=== PATIENT | female | born 1960 | race Caucasian/White ===

== ENCOUNTER → 2018-10-18 | Outpatient (CLI) | payer MEDICARE ==
--- NOTE | 2018-10-26 00:32 | ECWPNPC ---
PATIENT NAME: PIEDAD ARMENTA : 1960 GENDER: FEMALE VISIT DATE: 10/18/2018 DISCHARGE DATE: 10/18/18 1504 VISIT LOCKED DATE TIME: PHYSICIAN: KIM KINNEY RESOURCE: KIM KINNEY REASON FOR APPOINTMENT 1. CHRONIC LEFT HIP/ LEG PAIN HISTORY OF PRESENT ILLNESS NEW PATIENT CONSULT: 58 Y/O FEMALE REFERRED BY [facility], TO EVALUATE PERSISTENT LEFT GROIN AND LEFT ANTERIOR THIGH PAIN.SUSTAINED A FEMORAL NECK FX AFTER FALLING AT HOME MAY 2016 AND UNDERWENT LEFT TOTAL HIP REPLACEMENT ON 05/06/16.HAS HAD PERSISTENT LEFT GROIN,HIP AND THIGH PAIN SINCE.PAIN HAS GOTTEN WORSE OVER THE PAST YEAR AND SHE WAS REEVALUATED BY SURGEON,DR. LANGE 06/2018.IMAGING AND NCS WAS DONE AT THIS TIME AND NO PATHOLOGY FOUND.REMOTE HX OF LEFT LIGAMENT RING /GROIN SURGERY 2006 FOR HERNIA.DESCRIBES PAIN 8-10/10 VAS.PAIN IS AGGREVATED BY MOVING LEGS OR PROLONGED SITTING AND RELIEVED SOMEWHAT WITH REPOSITIONING.SHE USES A WHEELCHAIR OFTEN.HAS TRIALED NSAIDS AND WAS UNABLE TO TOLERATE NAPROXEN DUE TO GI ISSUES.RECENTLY STARTED ON MELOXICAM 7.5MG BID WITH OMEPRAZOLE 20MG DAILY.DESCRIBES PAIN SHARP AND STABBING. WHEN DID YOUR PAIN FIRST START? . BRIEFLY DESCRIBE HOW YOUR PAIN STARTED? . HOW DOES YOUR PAIN CHANGE WITH TIME? . DOES YOUR PAIN AWAKEN YOU FROM SLEEP? . HOW MANY HOURS OF SLEEP DO YOU NORMALLY GET? . ANY DIAGNOSTIC TESTING? . FACILITY WHERE TESTS WERE DONE? ____. PAIN TREATMENT TREATMENT YES CANCER HAVE YOU EVER HAD ANY TYPE OF CANCER?NO NO. PAIN SCREENING: PATIENT HAS A COMPLAINT OF ACUTE OR CHRONIC PAIN :YES FALL RISK SCREENING: SCREENING : NO FALLS IN THE PAST YEAR. CARTAGENA INVENTORY: QUESTIONNAIRE ASSESSEDTBD SCORE VALUE CALCULATED TBD CURRENT MEDICATIONS TAKING SYNTHROID 88 MCG TABLET 1 TABLET ON AN EMPTY STOMACH IN THE MORNING ORALLY ONCE A DAY TAKING TRIAMTERENE-HCTZ 37.5-25 MG TABLET 1 TABLET IN THE MORNING ORALLY ONCE A DAY TAKING DIAZEPAM 5 MG TABLET 1/2 TAB ORALLY DAILY TAKING MECLIZINE HCL 25 MG TABLET 1 TABLET NEEDED ORALLY ONCE A DAY TAKING TYLENOL 325 MG TABLET 1 TABLET NEEDED ORALLY EVERY 4 HRS, NOTES: PT TAKING 500 MG TAKING LIDODERM 5 % PATCH 1 PATCH TO SKIN REMOVE AFTER 12 HOURS EXTERNALLY ONCE A DAY TAKING OMEPRAZOLE 20 MG CAPSULE DELAYED RELEASE 1 CAPSULE ORALLY ONCE A DAY TAKING MELOXICAM 7.5 MG TABLET 1 TABLET ORALLY ONCE A DAY NOT-TAKING NAPROXEN 500 MG TABLET 1 TABLET WITH FOOD OR MILK NEEDED ORALLY EVERY 12 HRS NOT-TAKING METHOCARBAMOL 750 MG TABLET 1 TABLET ORALLY BID NOT-TAKING IBUPROFEN 200 MG TABLET 1 TABLET WITH FOOD OR MILK NEEDED ORALLY THREE TIMES A DAY MEDICATION LIST REVIEWED AND RECONCILED WITH THE PATIENT PAST MEDICAL HISTORY ENDOMETRIOSIS SPORTS HERNIA COLITIS DEVIATED SEPTUM VETIGO HEMORRHOIDS DEGENRATIVE DISC DISEASE HYPO THYROID ALLERGIES SEPTRA: RASH NAPROXEN: BURNING AND BLOZTING SURGICAL HISTORY APPENDECTEMY 1967 ENDOMETRIOSIS-LEFT OVARY AND FALLOPION TUBE 1989 SPORTS HERNIA 2006 TOTAL LEFT HIP 2017 FAMILY HISTORY FATHER: , DIAGNOSED WITH CANCER MOTHER: , HYPERTENSION SIBLINGS: ALIVE, HYPERTENSION DAUGHTER(S): ALIVE FATHER- OF CANCER NOT SURE WHERE. SOCIAL HISTORY GENERAL: TOBACCO USE ARE YOU A:NONSMOKER NEVER BEEN A SMOKER OTHERS AT HOME: JOYCE ALONE. HOUSING: [email or web address] TRAIL[employer]. EDUCATION LEVEL OF EDUCATION:HIGH SCHOOL DIET: REGULAR. LANGUAGE LANGUAGES SPOKEN:FILIPINO DOMESTIC VIOLENCE DO YOU FEEL SAFE IN YOUR ENVIRONMENT?YES EXERCISE: WALKS WHEN CAN. LEARNING BARRIERS / SPECIAL NEEDS SPECIAL DEVICES?YES CANE, WALKER WHEN SHE HAS EPISODE PAIN CLINIC PFS, CLERGY, PUBLIC HEALTH REFERRALS PFS REFERRAL NEEDED?NO CLERGY REFERRAL NEEDED?NO PUBLIC HEALTH REFERRAL NEEDED?NO WAS THE PROVIDER NOTIFIED OF ANY PERTINENT INFO?NO HAS THE PATIENT BEEN EDUCATED REGARDING HIS/HER PLAN OF CARE?YES HAS THE PATIENT BEEN EDUCATED REGARDING PAIN, THE RISK FOR PAIN, THE IMPORTANCE OF EFFECTIVE PAIN MANAGEMENT, AND THE PAIN ASSESSMENT PROCESS?YES CAFFEINE CAFFEINE USE?YES A SODA ONCE A MONTH " CHOCOLATE CANDY ONCE A WEEK" ADVANCE DIRECTIVE ADVANCE DIRECTIVE DISCUSSED WITH PATIENT:YES WE DISCUSSED AND DECLINES PAPERWORK ADVENTISM ADVENTISM MENNONITE MARITAL STATUS: . ALCOHOL SCREENING DID YOU HAVE A DRINK CONTAINING ALCOHOL IN THE PAST YEAR?NO POINTS0 INTERPRETATIONNEGATIVE OCCUPATION: DOES NOT WORK AND HASNT SINCE 2004 IS ON DISABILITY. HOSPITALIZATION/MAJOR DIAGNOSTIC PROCEDURE SURGERIES AND CHILD REVIEW OF SYSTEMS REVIEWED BY: PROVIDER: KIM KINNEY SUPERVISOR TYPE DISK QUALITY CONTROL . CONSTITUTIONAL: ANY CHANGE IN YOUR MEDICAL CONDITION? NO . CHILLS NO . FEVER NO . INFECTION: DO YOU HAVE NEW INFECTIONS? NO . DO YOU HAVE HISTORY OF MRSA? NO . MUSCULOSKELETAL: ANY NEW PATTERNS OF PAIN OR NUMBNESS? NO . SYTEMIC LUPUS NO . GASTROENTEROLOGY: ANY NEW CHANGE IN BOWEL CONTROL? NO . BARRETTS ESOPHAGUS NO . CIRRHOSIS NO . HEPATITIS NO . LIVER FAILURE NO . ACID REFLUX NO . UNEXPLAINED WEIGHT LOSS NO . GENITOURINARY: ANY NEW CHANGE IN BLADDER CONTROL? NO . IS THERE A CHANCE YOU COULD BE ? NO . HEMATOLOGY/LYMPH: DO YOU TAKE ANY BLOOD THINNERS? (FOR EXAMPLE- COUMADIN, PLAVIX, AGGRENOX, PLATEL, PRADAXA, OR XARELTO) NO . WHEN WAS YOUR LAST DOSE? DATE: TIME: . LOW PLATELET COUNT NO . SICKLE CELL DISEASE NO . VON WILLIEBRANDS NO . FACTOR V LEIDEN NO . THALLASEMIA NO . ANEMIA NO . EASY BRUISING NO . NEUROLOGY: HAVE YOU FALLEN IN THE PAST 12 MONTHS? NO . ANY NEW EXTREMITY NUMBNESS OR WEAKNESS? NO . HEAD INJURY NO . DEMENTIA NO . CEREBRAL PALSY NO . MULTIPLE SCLEROSIS NO . DIZZINESS NO . HEADACHE NO . STROKES NO . VERTIGO NO . CARDIOLOGY: DO YOU HAVE A PACEMAKER OR DEFIBRILLATOR? NO . ANGINA NO . HEART ATTACK NO . HEART SURGERY NO . CONGESTIVE HEART FAILURE/FLUID OVERLOAD NO . CHEST PAIN NO . HIGH BLOOD PRESSURE NO . IRREGULAR HEART BEAT NO . RESPIRATORY: HAVE YOU BEEN SICK IN THE PAST WEEK? NO . FEVER NO . FLU LIKE SYMPTOMS? NO . CPAP NO . BYPAP NO . ASTHMA NO . EMPHYSEMA NO . CHRONIC LUNG DISEASES NO . SHORTNESS OF BREATH ON EXERTION NO . DO YOU USE ANY TYPE OF TOBACCO (SMOKE, SMOKELESS, CHEW)? NO . COUGH NO . SNORING NO . INTEGUMENTARY: DO YOU HAVE ANY RASHES OR OPEN SORES? NO . ALLERGIC/IMMUNO: ARE YOU ALLERGIC TO IV DYE? NO . ANY NEW ALLERGIES? NO . PSYCHIATRIC: DO YOU HAVE THOUGHTS OF HURTING YOURSELF OR SOMEONE ELSE? NO . ARE YOU ABUSED, NEGLECTED, OR IN AN UNSAFE ENVIRONMENT? NO . ENDOCRINOLOGY: ARE YOU DIABETIC? NO . THYROID DISORDER NO . OTHER: DO YOU NEED ANY PRESCRIPTIONS? NO . IF YES, PLEASE LIST: ____ . ANY NEW PROBLEMS WITH YOUR MEDICATIONS? NO . WHEN DID YOU LAST EAT? ____ . WHEN DID YOU LAST DRINK? ____ . WHAT DID YOU LAST DRINK? ____ . NAME OF PERSON DRIVING YOU HOME? ____ . DO YOU HAVE ANY OTHER QUESTIONS OR CONCERNS NO . VITAL SIGNS WT 138.8 LBS, HT 54 IN, BMI 33.46 INDEX, BP 138/78 MM HG, HR 73 /MIN, RR 18 /MIN, TEMP 97.0 F, OXYGEN SAT % 96%, NA INITIALS AW 1332. EXAMINATION GENERAL EXAMINATION: GENERAL APPEARANCE: AWAKE,ALERT ,PLEAASANT . PSYCH AFFECT NORMAL . NECK: TRACHEA MIDLINE. NO CERVICAL OR SUPRACLAVICULAR LYMPHADENOPATHY NOTED. LUNGS: LUNG YANEZ ARE CLEAR TO AUSCULTATION BILATERALLY. GOOD MOVEMENT OF AIR . HEART: S1, S2 IN A REGULAR RATE AND RHYTHM. NO SIGNIFICANT MURMURS, RUBS OR GALLOPS NOTED . ABDOMEN: SOFT/NONTENDER. MUSCULOSKELETAL: MUSCLE STRENGTH TESTING 5/5 BILATERAL UPPER/LOWER EXTREMITIES. LUMBAR SACRAL SPINE PALPATION: NEGATIVE FOR PAIN OVER L/S SPINE. NEGATIVE FOR PAIN OVER L/S PARASPINALS. , TRIGGER POINTS:. CERVICAL NEGATIVE FOR PAIN WITH PALPATION OF CERVICAL SPINE. NEGATIVE FOR PAIN WITH PALPATION OF CERVICAL PARASPINALS. NEGATIVE FOR PAIN WITH PALPATION OF TRAPEZIUS BILAT. EXTREMITIES: TENDER WITH PALPATION OVER FEMORAL NERVE LEFT GROIN.NEGATIVE FOR LYMPHADENOPATHY.NO REDDNESS OR SWELLING. SKIN: NO RASH OR SKIN LESIONS. NEUROLOGIC EXAM: CN'S NORMAL TESTED , DTRS 1-2+ IN ALL 4 EXTREMITIES. ASSESSMENTS FEMORAL NEURITIS - G57.20 (PRIMARY) TREATMENT FEMORAL NEURITIS NOTES: LEFT FEMORAL NERVE BLOCK . PREVENTIVE MEDICINE PAIN CLINIC TEACHING: PROCEDURE TEACHING PT GIVEN VERBAL EDUCATION ON FEMORAL NERVE BLOCK. PT ALSO GIVEN WRITTEN AND VERBAL PRE PROCEDURE INSTRUCTIONS. PT VERBALIZES UNDERSTANDING OF ALL EDUCATION AND INSTRUCTIONS. CHRIS BETANCUR 10/18/2018 2:50:44 PM > . PROCEDURE CODES FA211 ESTABILISHED PATIENT [facility] FACILITY CHARGE DISPOSITION & COMMUNICATION FOLLOW UP REASON: LEFT FEMORAL NERVE BLOCK ELECTRONICALLY SIGNED BY CHRIS CASEY ON 10/25/2018 AT 10:05 AM EDT DISCLAIMER : THIS IS A VISIT SUMMARY EXTRACTED FROM THE [employer] CHART. IT IS NOT A COPY OF THE [employer] PROGRESS NOTE. DAVID
== END ==
LOC: M PAIN 13:00
PROVIDERS: ATTEND Nurse Practitioner Family
DX: G57.20 Lesion of femoral nerve, unspecified lower limb (principal); E03.9 Hypothyroidism, unspecified; Z96.642 Presence of left artificial hip joint; Z88.1 Allergy status to other antibiotic agents; Z88.6 Allergy status to analgesic agent; Z79.899 Other long term (current) drug therapy

== ENCOUNTER → 2018-12-07 | Outpatient (CLI) | payer MEDICARE ==
[~2018-12-07] MED LIST: BUPIVACAINE HCL 0.25% 30 ML VIAL As Ordered ONE; ISOVUE-M 200 41% 20ML VIAL (Q9966) As Ordered ONE; LIDOCAINE 1% SDV INJ 30 ML VIAL As Ordered ONE; TRIAMCINOLONE ACETONIDE SUSP 40 MG/ML VIAL (J3301) As Ordered ONE; diazePAM 5 MG TAB As Ordered ONE; oxyCODONE 5MG TAB As Ordered ONE
--- NOTE | 2018-12-20 01:25 | ECWPNPC ---
PATIENT NAME: PIEDAD ARMENTA : 1960 GENDER: FEMALE VISIT DATE: 12/07/2018 DISCHARGE DATE: 12/07/18 1338 VISIT LOCKED DATE TIME: PHYSICIAN: DELFINA MATOS MD RESOURCE: DELFINA MATOS MD REASON FOR APPOINTMENT 1. LEFT FEMORAL NERVE BLOCK HISTORY OF PRESENT ILLNESS HISTORY OF PRESENT ILLNESS: PAIN THE PATIENT DESCRIBES THE PAIN... FALL RISK SCREENING: SCREENING :NO FALLS REPORTED IN THE LAST YEAR CURRENT MEDICATIONS TAKING SYNTHROID 88 MCG TABLET 1 TABLET ON AN EMPTY STOMACH IN THE MORNING ORALLY ONCE A DAY, NOTES: 12/06/18 0800 TAKING TRIAMTERENE-HCTZ 37.5-25 MG TABLET 1 TABLET IN THE MORNING ORALLY ONCE A DAY, NOTES: 12/06/18 0800 TAKING DIAZEPAM 5 MG TABLET 1/2 TAB ORALLY DAILY, NOTES: 12/06/18 0800 TAKING MECLIZINE HCL 25 MG TABLET 1 TABLET NEEDED ORALLY ONCE A DAY, NOTES: 12/06/18 2100 NOT-TAKING TYLENOL 325 MG TABLET 1 TABLET NEEDED ORALLY EVERY 4 HRS, NOTES: PT TAKING 500 MG NOT-TAKING LIDODERM 5 % PATCH 1 PATCH TO SKIN REMOVE AFTER 12 HOURS EXTERNALLY ONCE A DAY, NOTES: LAST MONTH NOT-TAKING OMEPRAZOLE 20 MG CAPSULE DELAYED RELEASE 1 CAPSULE ORALLY ONCE A DAY NOT-TAKING MELOXICAM 7.5 MG TABLET 1 TABLET ORALLY ONCE A DAY NOT-TAKING NAPROXEN 500 MG TABLET 1 TABLET WITH FOOD OR MILK NEEDED ORALLY EVERY 12 HRS NOT-TAKING METHOCARBAMOL 750 MG TABLET 1 TABLET ORALLY BID NOT-TAKING IBUPROFEN 200 MG TABLET 1 TABLET WITH FOOD OR MILK NEEDED ORALLY THREE TIMES A DAY MEDICATION LIST REVIEWED AND RECONCILED WITH THE PATIENT PAST MEDICAL HISTORY ENDOMETRIOSIS SPORTS HERNIA COLITIS DEVIATED SEPTUM VETIGO HEMORRHOIDS DEGENRATIVE DISC DISEASE HYPO THYROID ALLERGIES SEPTRA: RASH NAPROXEN: BURNING AND BLOZTING SURGICAL HISTORY APPENDECTEMY 1968 ENDOMETRIOSIS-LEFT OVARY AND FALLOPION TUBE 1989 SPORTS HERNIA 2006 TOTAL LEFT HIP 2017 FAMILY HISTORY FATHER: , DIAGNOSED WITH CANCER MOTHER: , HYPERTENSION SIBLINGS: ALIVE, HYPERTENSION DAUGHTER(S): ALIVE FATHER- OF CANCER NOT SURE WHERE. SOCIAL HISTORY GENERAL: TOBACCO USE ARE YOU A:NONSMOKER NEVER BEEN A SMOKER OTHERS AT HOME: JOYCE ALONE. HOUSING: [employer]. EDUCATION LEVEL OF EDUCATION:HIGH SCHOOL DIET: REGULAR. LANGUAGE LANGUAGES SPOKEN:TURKISH DOMESTIC VIOLENCE DO YOU FEEL SAFE IN YOUR ENVIRONMENT?YES EXERCISE: WALKS WHEN CAN. LEARNING BARRIERS / SPECIAL NEEDS SPECIAL DEVICES?YES CANE, WALKER WHEN SHE HAS EPISODE PAIN CLINIC PFS, CLERGY, PUBLIC HEALTH REFERRALS PFS REFERRAL NEEDED?NO CLERGY REFERRAL NEEDED?NO PUBLIC HEALTH REFERRAL NEEDED?NO WAS THE PROVIDER NOTIFIED OF ANY PERTINENT INFO?NO HAS THE PATIENT BEEN EDUCATED REGARDING HIS/HER PLAN OF CARE?YES HAS THE PATIENT BEEN EDUCATED REGARDING PAIN, THE RISK FOR PAIN, THE IMPORTANCE OF EFFECTIVE PAIN MANAGEMENT, AND THE PAIN ASSESSMENT PROCESS?YES CAFFEINE CAFFEINE USE?YES A SODA ONCE A MONTH " CHOCOLATE CANDY ONCE A WEEK" ADVANCE DIRECTIVE ADVANCE DIRECTIVE DISCUSSED WITH PATIENT:YES WE DISCUSSED AND DECLINES PAPERWORK MORMONISM MORMONISM MENNONITE MARITAL STATUS: . ALCOHOL SCREENING DID YOU HAVE A DRINK CONTAINING ALCOHOL IN THE PAST YEAR?NO POINTS0 INTERPRETATIONNEGATIVE OCCUPATION: DOES NOT WORK AND HASNT SINCE 2004 IS ON DISABILITY. REVIEWED WITH PATIENT 12/07/18 1121 NLJ. HOSPITALIZATION/MAJOR DIAGNOSTIC PROCEDURE SURGERIES AND CHILD REVIEW OF SYSTEMS REVIEWED BY: PROVIDER: . CONSTITUTIONAL: ANY CHANGE IN YOUR MEDICAL CONDITION? NO . CHILLS NO . FEVER NO . INFECTION: DO YOU HAVE NEW INFECTIONS? NO . DO YOU HAVE HISTORY OF MRSA? NO . MUSCULOSKELETAL: ANY NEW PATTERNS OF PAIN OR NUMBNESS? YES- PAIN IN LEFT GROIN AREA . GASTROENTEROLOGY: ANY NEW CHANGE IN BOWEL CONTROL? NO . GENITOURINARY: ANY NEW CHANGE IN BLADDER CONTROL? NO . IS THERE A CHANCE YOU COULD BE ? NO . HEMATOLOGY/LYMPH: DO YOU TAKE ANY BLOOD THINNERS? (FOR EXAMPLE- COUMADIN, PLAVIX, AGGRENOX, PLATEL, PRADAXA, OR XARELTO) NO . WHEN WAS YOUR LAST DOSE? DATE: TIME: . NEUROLOGY: HAVE YOU FALLEN IN THE PAST 12 MONTHS? NO . ANY NEW EXTREMITY NUMBNESS OR WEAKNESS? NO . CARDIOLOGY: DO YOU HAVE A PACEMAKER OR DEFIBRILLATOR? NO . RESPIRATORY: HAVE YOU BEEN SICK IN THE PAST WEEK? NO . FEVER NO . FLU LIKE SYMPTOMS? NO . COUGH NO . INTEGUMENTARY: DO YOU HAVE ANY RASHES OR OPEN SORES? NO . ALLERGIC/IMMUNO: ARE YOU ALLERGIC TO IV DYE? NO . ANY NEW ALLERGIES? NO . PSYCHIATRIC: DO YOU HAVE THOUGHTS OF HURTING YOURSELF OR SOMEONE ELSE? NO . ARE YOU ABUSED, NEGLECTED, OR IN AN UNSAFE ENVIRONMENT? NO . ENDOCRINOLOGY: ARE YOU DIABETIC? NO . OTHER: DO YOU NEED ANY PRESCRIPTIONS? NO . IF YES, PLEASE LIST: ____ . ANY NEW PROBLEMS WITH YOUR MEDICATIONS? NO . WHEN DID YOU LAST EAT? ____12/06/182114 . WHEN DID YOU LAST DRINK? ____0800 12/07/18 . WHAT DID YOU LAST DRINK? ____WATER . NAME OF PERSON DRIVING YOU HOME? ____NEZINA- YASMIN HOLIDAY . DO YOU HAVE ANY OTHER QUESTIONS OR CONCERNS NO . VITAL SIGNS WT 135.6 LBS, HT 54 IN, BMI 32.69 INDEX, BP 146/70 MM HG, HR 70 /MIN, RR 18 /MIN, TEMP 97.9 F, OXYGEN SAT % 99%, SAFE IN ENV? (Y/N) YES, NA INITIALS [place] 10:35, REVIEWED BY: MINDY. ASSESSMENTS NEURALGIA - M79.2 (PRIMARY) PROCEDURES PRE-PROCEDURE DIAGNOSIS: LEFT FEMORAL NEURALGIAPOST-PROCEDURE DIAGNOSIS: SAMEPROCEDURE: LEFT LATERAL FEMORAL CUTANEOUS NERVE BLOCKSURGEON: TOBIAS MARTELLTHESIA: LOCALCOMPLICATIONS: NONEPRE-PROCEDURE NOTE: THE PATIENT HAS HISTORY OF PAIN AT THE LEFT INTERIOR THIGH AREA. THE PAIN IS FOLLOWING THE DISTRIBUTION OF THE LEFT FEMORAL CUTANEOUS NERVE. I DISCUSSED ALTERNATIVES WITH THE PATIENT AND WE BOTH AGREE ON BLOCKING THE NERVE LOOKING FOR LONG-LASTING PAIN RELIEF. I EVALUATE THE PATIENT AND REVIEWED THE CHART. I WENT THROUGH THE RISKS ALTERNATIVES AND BENEFITS ASSOCIATED WITH THIS PROCEDURE. THE PATIENT EXPRESSED WANTS TO PROCEED. THE PATIENT DENIES UNEXPLAINABLE WEIGHT LOSS FEVER CHILLS NEW CHANGES IN THE URINARY OR BOWEL CONTROL.PROCEDURE NOTE: CONSENT WAS REVIEWED WITH THE PATIENT. PATIENT WAS BROUGHT TO THE PROCEDURE ROOM AND PLACED IN THE SUPINE POSITION. THE LEFT INGUINAL AREA WAS CLEAN WITH CHLORA-PREP SOLUTION AND DRAPED ASEPTICALLY. PROCEDURE WAS DONE UNDER STANDARD STERILE CONDITIONS. I CHECKED WITH AN ULTRASOUND MACHINE TO IDENTIFY THE LEFT FEMORAL ARTERY WITH THE PURPOSE OF AVOIDING IT. TARGET WAS SELECTED 3 INCHES MEDIAL TO THE LEFT ANTERIOR SUPERIOR ILIAC SPINE. A NERVE STIMULATOR WAS USED FIRST AT 3.0 VOLTS AND REDUCED SLOWLY FOLLOWING THE PATIENT FEEDBACK TO 0.7 VOLTS. WHEN PROPER STIMULATION OF THE NERVE WAS REACHED BUPIVACAINE 0.125%, 15 ML WITH KENALOG 10 MGS WAS INJECTED. THERE WAS NO EVIDENCE OF BLOOD, PARESTHESIA OR VISCERAL PUNCTURE. PATIENT WAS SENT TO THE RECOVERY ROOM. THERE WERE NO COMPLICATIONS.POST-PROCEDURE NOTE: I DISCUSSED ALTERNATIVES WITH THE PATIENT. PATIENT IS GOING TO BE SEEN IN A FOLLOW-UP. I AM LOOKING FOR LONG-LASTING PAIN IS WITH THIS INTERVENTION. INSTRUCTIONS WERE GIVING, QUESTIONS WERE ANSWERED, AND THE PATIENT REPORTS UNDERSTANDING AND AGREES WITH THE PLAN. I, JEREMIE QUIROZ, DOCUMENTED THE ABOVE INFORMATION ACTING A SCRIBE FOR DR. MATOS. I HAVE REVIEWED THE ABOVE DOCUMENT, WRITTEN BY JEREMIE QUIROZ SCRIBE AND I VERIFY THAT IT IS ACCURATE. PROCEDURE CODES 16640 N BLOCK INJ FEM SINGLE, MODIFIERS: LT DISPOSITION & COMMUNICATION FOLLOW UP 3 WEEKS ELECTRONICALLY SIGNED BY DELFINA MATOS MD, MD ON 12/19/2018 AT 12:09 PM EDT DISCLAIMER : THIS IS A VISIT SUMMARY EXTRACTED FROM THE [employer] CHART. IT IS NOT A COPY OF THE [employer] PROGRESS NOTE. DAVID
== END ==
LOC: M PAIN 10:30
PROVIDERS: ATTEND Anesthesiology
DX: M79.2 Neuralgia and neuritis, unspecified (principal); E03.9 Hypothyroidism, unspecified; Z79.899 Other long term (current) drug therapy; Z88.1 Allergy status to other antibiotic agents; Z88.8 Allergy status to other drugs, medicaments and biological substances
CPT/HCPCS: 64447; J3301

== ENCOUNTER → 2019-01-11 | Outpatient (CLI) | payer MEDICARE ==
--- NOTE | 2019-01-12 01:47 | ECWPNPC ---
PATIENT NAME: PIEDAD ARMENTA : 1960 GENDER: FEMALE VISIT DATE: 01/11/2019 DISCHARGE DATE: 01/11/19 1131 VISIT LOCKED DATE TIME: PHYSICIAN: KIM KINNEY RESOURCE: KIM KINNEY REASON FOR APPOINTMENT 1. POST LEFT FEMORAL NERVE BLOCK HISTORY OF PRESENT ILLNESS HISTORY OF PRESENT ILLNESS: HERE FOR POST PROCEDURE F/U.HAD LEFT FEMORAL NERVE BLOCK ON 12/07/18.REPORTING MARKED REDUCTION IN PAIN THAT CONTINUES TODAY.SHE IS ABLE TO WALK NOW AND NOT NEEDING WHEELCHAIR.SHE IS VERY HAPPY.STATES SHE WILL BE MOVING AT END OF YEAR.DISCUSSED TREATMENT PLAN.RATING LEFT ANTERIOR THIGH PAIN 3-4/10 VAS. PAIN THE PATIENT DESCRIBES THE PAIN... FALL RISK SCREENING: SCREENING :NO FALLS REPORTED IN THE LAST YEAR CURRENT MEDICATIONS TAKING SYNTHROID 88 MCG TABLET 1 TABLET ON AN EMPTY STOMACH IN THE MORNING ORALLY ONCE A DAY TAKING TRIAMTERENE-HCTZ 37.5-25 MG TABLET 1 TABLET IN THE MORNING ORALLY ONCE A DAY TAKING DIAZEPAM 5 MG TABLET 1/2 TAB ORALLY DAILY TAKING MECLIZINE HCL 25 MG TABLET 1 TABLET NEEDED ORALLY ONCE A DAY NOT-TAKING TYLENOL 325 MG TABLET 1 TABLET NEEDED ORALLY EVERY 4 HRS, NOTES: PT TAKING 500 MG NOT-TAKING LIDODERM 5 % PATCH 1 PATCH TO SKIN REMOVE AFTER 12 HOURS EXTERNALLY ONCE A DAY, NOTES: LAST MONTH NOT-TAKING OMEPRAZOLE 20 MG CAPSULE DELAYED RELEASE 1 CAPSULE ORALLY ONCE A DAY NOT-TAKING MELOXICAM 7.5 MG TABLET 1 TABLET ORALLY ONCE A DAY NOT-TAKING NAPROXEN 500 MG TABLET 1 TABLET WITH FOOD OR MILK NEEDED ORALLY EVERY 12 HRS NOT-TAKING METHOCARBAMOL 750 MG TABLET 1 TABLET ORALLY BID NOT-TAKING IBUPROFEN 200 MG TABLET 1 TABLET WITH FOOD OR MILK NEEDED ORALLY THREE TIMES A DAY MEDICATION LIST REVIEWED AND RECONCILED WITH THE PATIENT PAST MEDICAL HISTORY ENDOMETRIOSIS SPORTS HERNIA COLITIS DEVIATED SEPTUM VETIGO HEMORRHOIDS DEGENRATIVE DISC DISEASE HYPO THYROID ALLERGIES SEPTRA: RASH NAPROXEN: BURNING AND BLOZTING SURGICAL HISTORY APPENDECTEMY 1968 ENDOMETRIOSIS-LEFT OVARY AND FALLOPION TUBE 1989 SPORTS HERNIA 2006 TOTAL LEFT HIP 2017 FAMILY HISTORY FATHER: , DIAGNOSED WITH OTHER MALIGNANT NEOPLASM OF UNSPECIFIED SITE MOTHER: , HYPERTENSION SIBLINGS: ALIVE, HYPERTENSION DAUGHTER(S): ALIVE FATHER- OF CANCER NOT SURE WHERE. SOCIAL HISTORY GENERAL: TOBACCO USE ARE YOU A:NONSMOKER NEVER BEEN A SMOKER OTHERS AT HOME: JOYCE ALONE. HOUSING: [employer]. EDUCATION LEVEL OF EDUCATION:HIGH SCHOOL DIET: REGULAR. LANGUAGE LANGUAGES SPOKEN:ARABIC DOMESTIC VIOLENCE DO YOU FEEL SAFE IN YOUR ENVIRONMENT?YES EXERCISE: WALKS WHEN CAN. LEARNING BARRIERS / SPECIAL NEEDS SPECIAL DEVICES?YES CANE, WALKER WHEN SHE HAS EPISODE PAIN CLINIC PFS, CLERGY, PUBLIC HEALTH REFERRALS PFS REFERRAL NEEDED?NO CLERGY REFERRAL NEEDED?NO PUBLIC HEALTH REFERRAL NEEDED?NO WAS THE PROVIDER NOTIFIED OF ANY PERTINENT INFO?NO HAS THE PATIENT BEEN EDUCATED REGARDING HIS/HER PLAN OF CARE?YES HAS THE PATIENT BEEN EDUCATED REGARDING PAIN, THE RISK FOR PAIN, THE IMPORTANCE OF EFFECTIVE PAIN MANAGEMENT, AND THE PAIN ASSESSMENT PROCESS?YES CAFFEINE CAFFEINE USE?YES A SODA ONCE A MONTH " CHOCOLATE CANDY ONCE A WEEK" ADVANCE DIRECTIVE ADVANCE DIRECTIVE DISCUSSED WITH PATIENT:YES WE DISCUSSED AND DECLINES PAPERWORK BAPTISM BAPTISM MENNONITE MARITAL STATUS: . ALCOHOL SCREENING DID YOU HAVE A DRINK CONTAINING ALCOHOL IN THE PAST YEAR?NO POINTS0 INTERPRETATIONNEGATIVE OCCUPATION: DOES NOT WORK AND HASNT SINCE 2004 IS ON DISABILITY. REVIEWED WITH PATIENT 12/07/18 1121 NLJREVIEWED WITH PATIENT 01/11/19 1107 NLJ. HOSPITALIZATION/MAJOR DIAGNOSTIC PROCEDURE SURGERIES AND CHILD REVIEW OF SYSTEMS REVIEWED BY: PROVIDER: KIM PEREZ . CONSTITUTIONAL: ANY CHANGE IN YOUR MEDICAL CONDITION? NO . CHILLS NO . FEVER NO . INFECTION: DO YOU HAVE NEW INFECTIONS? NO . DO YOU HAVE HISTORY OF MRSA? NO . MUSCULOSKELETAL: ANY NEW PATTERNS OF PAIN OR NUMBNESS? YES- STATES THE FEMORAL NERVE BLOCK WORKED WELL, BUT STATES SHE STILL HAS SOME PAIN AND PAIN INCREASES WITH STANDING OR INCREASED ACTIVITY . GASTROENTEROLOGY: ANY NEW CHANGE IN BOWEL CONTROL? NO . GENITOURINARY: ANY NEW CHANGE IN BLADDER CONTROL? NO . IS THERE A CHANCE YOU COULD BE ? NO . HEMATOLOGY/LYMPH: DO YOU TAKE ANY BLOOD THINNERS? (FOR EXAMPLE- COUMADIN, PLAVIX, AGGRENOX, PLATEL, PRADAXA, OR XARELTO) NO . WHEN WAS YOUR LAST DOSE? DATE: TIME: . NEUROLOGY: HAVE YOU FALLEN IN THE PAST 12 MONTHS? NO . ANY NEW EXTREMITY NUMBNESS OR WEAKNESS? NO . CARDIOLOGY: DO YOU HAVE A PACEMAKER OR DEFIBRILLATOR? NO . RESPIRATORY: HAVE YOU BEEN SICK IN THE PAST WEEK? NO . FEVER NO . FLU LIKE SYMPTOMS? NO . COUGH NO . INTEGUMENTARY: DO YOU HAVE ANY RASHES OR OPEN SORES? NO . ALLERGIC/IMMUNO: ARE YOU ALLERGIC TO IV DYE? NO . ANY NEW ALLERGIES? NO . PSYCHIATRIC: DO YOU HAVE THOUGHTS OF HURTING YOURSELF OR SOMEONE ELSE? NO . ARE YOU ABUSED, NEGLECTED, OR IN AN UNSAFE ENVIRONMENT? NO . ENDOCRINOLOGY: ARE YOU DIABETIC? NO . OTHER: DO YOU NEED ANY PRESCRIPTIONS? NO . IF YES, PLEASE LIST: ____ . ANY NEW PROBLEMS WITH YOUR MEDICATIONS? NO . WHEN DID YOU LAST EAT? ____ . WHEN DID YOU LAST DRINK? ____ . WHAT DID YOU LAST DRINK? ____ . NAME OF PERSON DRIVING YOU HOME? ____ . DO YOU HAVE ANY OTHER QUESTIONS OR CONCERNS YES- STATES SHE WOULD LIKE TO TRY PHYSICAL THERAPY, AND WOULD ALSO LIKE TO KNOW IF SHE SHOULD COULD HAVE SOMETHING FOR PAIN CONTROL IN OTHER AREAS . VITAL SIGNS WT 134.8 LBS, HT 54 IN, BMI 32.50 INDEX, BP 116/77 MM HG, HR 84 /MIN, RR 18 /MIN, TEMP 97.4 F, OXYGEN SAT % 98%, SAFE IN ENV? (Y/N) YES, NA INITIALS AW 1108, REVIEWED BY: MINDY. EXAMINATION GENERAL EXAMINATION: GENERALAWAKE,ALERT ,PLEAASANT . PSYCHAFFECT NORMAL . LUNGS:LUNG YANEZ ARE CLEAR TO AUSCULTATION BILATERALLY. GOOD MOVEMENT OF AIR . HEART:S1, S2 IN A REGULAR RATE AND RHYTHM. NO SIGNIFICANT MURMURS, RUBS OR GALLOPS NOTED . ASSESSMENTS FEMORAL NEURITIS - G57.20 (PRIMARY) TREATMENT FEMORAL NEURITIS NOTES: CONTINUE WALKING AND HOME STRETCHING EXCERSISES. PROCEDURE CODES FA211 ESTABILISHED PATIENT [facility] CHARGE DISPOSITION & COMMUNICATION FOLLOW UP 6-8WKS ELECTRONICALLY SIGNED BY CHRIS CASEY ON 01/11/2019 AT 02:34 PM EDT DISCLAIMER : THIS IS A VISIT SUMMARY EXTRACTED FROM THE [employer] CHART. IT IS NOT A COPY OF THE [employer] PROGRESS NOTE. DAVID
== END ==
LOC: M PAIN 10:30
PROVIDERS: ATTEND Nurse Practitioner Family
DX: G57.20 Lesion of femoral nerve, unspecified lower limb (principal); E03.9 Hypothyroidism, unspecified; Z96.642 Presence of left artificial hip joint; Z88.1 Allergy status to other antibiotic agents; Z88.6 Allergy status to analgesic agent; Z79.899 Other long term (current) drug therapy

== ENCOUNTER → 2019-03-02 | Outpatient (CLI) | payer MEDICARE ==
--- NOTE | 2019-03-14 05:03 | ECWPNPC ---
PATIENT NAME: PIEDAD ARMENTA : 1960 GENDER: FEMALE VISIT DATE: 03/02/2019 DISCHARGE DATE: 03/02/19 1151 VISIT LOCKED DATE TIME: PHYSICIAN: KIM KINNEY RESOURCE: KIM KINNEY REASON FOR APPOINTMENT 1. FEMORAL NERVE HISTORY OF PRESENT ILLNESS HISTORY OF PRESENT ILLNESS: HERE FOR F/U OF LEFT LATERAL FEMORAL CUTANEOUS NEURALGIA.OVERALL DOING PRETTY WELL ALTHOUGH SHE WISHES SHE COULD TOLERATE MORE ACTIVITY.RATING PAIN VAS 4/10.WILL BE MOVING IN NEAR FUTURE TO [place] TO BE CLOSER TO DAUGHTER.DISCUSSED MEDICATION TREATMENT OPTIONS. PAIN THE PATIENT DESCRIBES THE PAIN... FALL RISK SCREENING: SCREENING :NO FALLS REPORTED IN THE LAST YEAR CURRENT MEDICATIONS TAKING SYNTHROID 88 MCG TABLET 1 TABLET ON AN EMPTY STOMACH IN THE MORNING ORALLY ONCE A DAY TAKING TRIAMTERENE-HCTZ 37.5-25 MG TABLET 1 TABLET IN THE MORNING ORALLY ONCE A DAY TAKING DIAZEPAM 5 MG TABLET 1/2 TAB ORALLY DAILY TAKING MECLIZINE HCL 25 MG TABLET 1 TABLET NEEDED ORALLY ONCE A DAY NOT-TAKING TYLENOL 325 MG TABLET 1 TABLET NEEDED ORALLY EVERY 4 HRS, NOTES: PT TAKING 500 MG NOT-TAKING LIDODERM 5 % PATCH 1 PATCH TO SKIN REMOVE AFTER 12 HOURS EXTERNALLY ONCE A DAY, NOTES: LAST MONTH NOT-TAKING OMEPRAZOLE 20 MG CAPSULE DELAYED RELEASE 1 CAPSULE ORALLY ONCE A DAY NOT-TAKING MELOXICAM 7.5 MG TABLET 1 TABLET ORALLY ONCE A DAY NOT-TAKING NAPROXEN 500 MG TABLET 1 TABLET WITH FOOD OR MILK NEEDED ORALLY EVERY 12 HRS NOT-TAKING METHOCARBAMOL 750 MG TABLET 1 TABLET ORALLY BID NOT-TAKING IBUPROFEN 200 MG TABLET 1 TABLET WITH FOOD OR MILK NEEDED ORALLY THREE TIMES A DAY MEDICATION LIST REVIEWED AND RECONCILED WITH THE PATIENT PAST MEDICAL HISTORY ENDOMETRIOSIS SPORTS HERNIA COLITIS DEVIATED SEPTUM VETIGO HEMORRHOIDS DEGENRATIVE DISC DISEASE HYPO THYROID ALLERGIES SEPTRA: RASH NAPROXEN: BURNING AND BLOZTING SURGICAL HISTORY APPENDECTEMY 1968 ENDOMETRIOSIS-LEFT OVARY AND FALLOPION TUBE 1989 SPORTS HERNIA 2007 TOTAL LEFT HIP 2017 FAMILY HISTORY FATHER: , DIAGNOSED WITH OTHER MALIGNANT NEOPLASM OF UNSPECIFIED SITE MOTHER: , HYPERTENSION SIBLINGS: ALIVE, HYPERTENSION DAUGHTER(S): ALIVE FATHER- OF CANCER NOT SURE WHERE. SOCIAL HISTORY GENERAL: TOBACCO USE ARE YOU A:NONSMOKER NEVER BEEN A SMOKER OTHERS AT HOME: JOYCE ALONE. HOUSING: [employer]. EDUCATION LEVEL OF EDUCATION:HIGH SCHOOL DIET: REGULAR. LANGUAGE LANGUAGES SPOKEN:[place] DOMESTIC VIOLENCE DO YOU FEEL SAFE IN YOUR ENVIRONMENT?YES EXERCISE: WALKS WHEN CAN. LEARNING BARRIERS / SPECIAL NEEDS SPECIAL DEVICES?YES CANE, WALKER WHEN SHE HAS EPISODE PAIN CLINIC PFS, CLERGY, PUBLIC HEALTH REFERRALS PFS REFERRAL NEEDED?NO CLERGY REFERRAL NEEDED?NO PUBLIC HEALTH REFERRAL NEEDED?NO WAS THE PROVIDER NOTIFIED OF ANY PERTINENT INFO?NO HAS THE PATIENT BEEN EDUCATED REGARDING HIS/HER PLAN OF CARE?YES HAS THE PATIENT BEEN EDUCATED REGARDING PAIN, THE RISK FOR PAIN, THE IMPORTANCE OF EFFECTIVE PAIN MANAGEMENT, AND THE PAIN ASSESSMENT PROCESS?YES CAFFEINE CAFFEINE USE?YES A SODA ONCE A MONTH " CHOCOLATE CANDY ONCE A WEEK" ADVANCE DIRECTIVE ADVANCE DIRECTIVE DISCUSSED WITH PATIENT:YES WE DISCUSSED AND DECLINES PAPERWORK PRESYBETERIAN PRESYBETERIAN MENNONITE MARITAL STATUS: . ALCOHOL SCREENING DID YOU HAVE A DRINK CONTAINING ALCOHOL IN THE PAST YEAR?NO POINTS0 INTERPRETATIONNEGATIVE OCCUPATION: DOES NOT WORK AND HASNT SINCE 2004 IS ON DISABILITY. REVIEWED WITH PATIENT 12/07/18 1121 NLJREVIEWED WITH PATIENT 01/11/19 1107 NLJ. HOSPITALIZATION/MAJOR DIAGNOSTIC PROCEDURE SURGERIES AND CHILD REVIEW OF SYSTEMS REVIEWED BY: PROVIDER: KIM PEREZ . CONSTITUTIONAL: ANY CHANGE IN YOUR MEDICAL CONDITION? NO . CHILLS NO . FEVER NO . INFECTION: DO YOU HAVE NEW INFECTIONS? NO . DO YOU HAVE HISTORY OF MRSA? NO . MUSCULOSKELETAL: ANY NEW PATTERNS OF PAIN OR NUMBNESS? NO . GASTROENTEROLOGY: ANY NEW CHANGE IN BOWEL CONTROL? NO . GENITOURINARY: ANY NEW CHANGE IN BLADDER CONTROL? NO . IS THERE A CHANCE YOU COULD BE ? NO . HEMATOLOGY/LYMPH: DO YOU TAKE ANY BLOOD THINNERS? (FOR EXAMPLE- COUMADIN, PLAVIX, AGGRENOX, PLATEL, PRADAXA, OR XARELTO) NO . WHEN WAS YOUR LAST DOSE? DATE: TIME: . NEUROLOGY: HAVE YOU FALLEN IN THE PAST 12 MONTHS? NO . ANY NEW EXTREMITY NUMBNESS OR WEAKNESS? NO . CARDIOLOGY: DO YOU HAVE A PACEMAKER OR DEFIBRILLATOR? NO . RESPIRATORY: HAVE YOU BEEN SICK IN THE PAST WEEK? NO . FEVER NO . FLU LIKE SYMPTOMS? NO . COUGH NO . INTEGUMENTARY: DO YOU HAVE ANY RASHES OR OPEN SORES? NO . ALLERGIC/IMMUNO: ARE YOU ALLERGIC TO IV DYE? NO . ANY NEW ALLERGIES? NO . PSYCHIATRIC: DO YOU HAVE THOUGHTS OF HURTING YOURSELF OR SOMEONE ELSE? NO . ARE YOU ABUSED, NEGLECTED, OR IN AN UNSAFE ENVIRONMENT? NO . ENDOCRINOLOGY: ARE YOU DIABETIC? NO . OTHER: DO YOU NEED ANY PRESCRIPTIONS? NO . IF YES, PLEASE LIST: ____ . ANY NEW PROBLEMS WITH YOUR MEDICATIONS? NO . WHEN DID YOU LAST EAT? ____ . WHEN DID YOU LAST DRINK? ____ . WHAT DID YOU LAST DRINK? ____ . NAME OF PERSON DRIVING YOU HOME? ____ . DO YOU HAVE ANY OTHER QUESTIONS OR CONCERNS NO . VITAL SIGNS WT 136.2 LBS, HT 54 IN, BMI 32.84 INDEX, BP 127/62 MM HG, HR 86 /MIN, RR 18 /MIN, TEMP 98.6 F, OXYGEN SAT % 100%, NA INITIALS AW 1044, REVIEWED BY: FRANKLIN. EXAMINATION GENERAL EXAMINATION: GENERALAWAKE,ALERT ,PLEAASANT . PSYCHAFFECT NORMAL . LUNGS:LUNG YANEZ ARE CLEAR TO AUSCULTATION BILATERALLY. GOOD MOVEMENT OF AIR . HEART:S1, S2 IN A REGULAR RATE AND RHYTHM. NO SIGNIFICANT MURMURS, RUBS OR GALLOPS NOTED . ASSESSMENTS FEMORAL NEURITIS - G57.20 (PRIMARY) TREATMENT FEMORAL NEURITIS NOTES: CONTINUE CONSERVATIVE CARE FOR LEFT INGUINAL PAIN: MAY USE IBUPROFEN 200MG 2 TABS 3X DAILY X 10 DAYS ,THEN STOP FOR 7 AND REPEAT AGAIN TO CONTROL CHRONIC PAIN.MAY USE TYLENOL NEEDED FOR SEVERE PAIN FLARE [facility] [phone] ASK FOR MEDICAL RECORDS. PROCEDURE CODES FA211 ESTABILISHED PATIENT [facility] FACILITY CHARGE DISPOSITION & COMMUNICATION FOLLOW UP NO F/U PT MOVING ELECTRONICALLY SIGNED BY CHRIS CASEY ON 03/13/2019 AT 03:35 PM EST DISCLAIMER : THIS IS A VISIT SUMMARY EXTRACTED FROM THE [employer] CHART. IT IS NOT A COPY OF THE [employer] PROGRESS NOTE. DAVID
== END ==
LOC: M PAIN 10:45
PROVIDERS: ATTEND Nurse Practitioner Family
DX: G57.20 Lesion of femoral nerve, unspecified lower limb (principal); E03.9 Hypothyroidism, unspecified; Z88.1 Allergy status to other antibiotic agents; Z88.6 Allergy status to analgesic agent; Z79.899 Other long term (current) drug therapy